=== PATIENT | female | born 1960 | race Caucasian/White ===

== ENCOUNTER 2019-04-06 10:32 | Emergency (ER) | payer OTHER ==
[~2019-04-06] VITALS: Ht 162.6 cm; Wt 73.5 kg
[2019-04-06] MEDS ORDERED: LAMICTAL200 MG PO (10:49)
[2019-04-06] MEDS ORDERED: PROZAC20 MG PO (10:50)
[2019-04-06] MEDS ORDERED: BUPROPION HCL150 M1 PO (10:50)
[2019-04-06 11:17] LABS: ABSOLUTE NEUTROPHILS 8.5 thou/uL (1.4-8.2); BASOPHILS 1.5 % (0.0-2.0); EOSINOPHILS 4.8 % (0.0-3.0); HEMATOCRIT 41.5 % (37.0-47.0); LYMPHOCYTES 18.9 % (24.0-44.0); MCH 31.8 pg (26.0-34.0); MCHC 33.8 g/dL (28.0-37.0); MCV 93.9 fL (80.0-100.0); MONOCYTES 6.1 % (1.0-8.0); PLATELET COUNT 736 thou/uL (150-400); POLYS 68.7 % (36.0-66.0); RBC 4.42 mil/uL (4.20-5.00); RDW 14.3 % (10.5-14.5); WBC 12.3 thou/uL (4.0-11.0)
[2019-04-06 11:23] LABS: ANION GAP 10 mmol/L (7-16); BUN 10 mg/dL (7-18); CHLORIDE 104 mmol/L (98-107); CO2 29 mmol/L (21-32); CREATININE 0.8 mg/dL (0.6-1.0); GLUCOSE 109 mg/dL (74-106); POTASSIUM 3.9 mmol/L (3.5-5.1); SODIUM 143 mmol/L (136-145)
[2019-04-06 11:34] LABS: ALBUMIN 4.1 g/dL (3.4-5.0); SGOT 16 U/L (15-37); SGPT 22 U/L (30-65); TOTAL BILIRUBIN 0.5 mg/dL (<0.1-1.0); TOTAL PROTEIN 7.7 g/dL (6.4-8.2); TROPONIN-I <0.06 ng/mL (<0.06)
[2019-04-06 12:37] LABS: AMP/METHAMP Negative (Negative); BARBITURATES Negative (Negative); BENZODIAZEPINES Negative (Negative); COCAINE Negative (Negative); METHADONE Negative (Negative); OPIATES Negative (Negative); PCP Negative (Negative)
[2019-04-06] MEDS ORDERED: PRINIVIL20 MG PO (12:44)
[2019-04-06 12:50] VITALS: BP 166/68
--- NOTE | 2019-04-07 09:05 | EKG ---
[place] [address] [employer] [facility] [email or web address] [address] ELECTROCARDIOGRAM REPORT Name: WALLACE TATUM Room #: [facility]P [facility] [id number] ������������������ Admission: 04/06/19 ������������������ Attend Phys: Discharge: 04/06/19 ������������������ Date of : 56 Report #: [id number] ����������������������������������������������������������������� [id number] THIS REPORT FOR: //name// [facility] ED Test Date: 2019-04-06 Test Time: 10:42:28 Pat Name: WALLACE TATUM Department: Room: Gender: F Prop Sawyer: UZMA : 1960 Requested By: Harry Thapa Order Number: [id number] MD: Saran Hernandez Measurements Intervals [place] Rate: 84 P: 17 AR: 147 QRS: 30 QRSD: 88 T: 55 QT: 358 QTc: 424 Interpretive Statements Sinus rhythm Normal tracing No previous ECG available for comparison Electronically Signed On 04-07-2019 9:05:37 CDT by Saran Hernandez [email or web address] ��������������������������������������������� <ELECTRONICALLY SIGNED> ���������������������������������������� By: Saran Hernandez MD, [facility] ��������������������������������������������� 04/07/19 0905 1042 1042 Saran Hernandez MD, FACC /EPI
== END 2019-04-06 12:50 | disposition home or self-care (01) ==
LOC: ER 10:32
PROVIDERS: Emergency Medicine
DX: R00.2 Palpitations (principal); I10 Essential (primary) hypertension; R53.1 Weakness; F17.210 Nicotine dependence, cigarettes, uncomplicated; Z88.5 Allergy status to narcotic agent

== ENCOUNTER → 2020-09-28 | Outpatient (CLI) | payer OTHER ==
[~2020-09-28] MED LIST: BUPROPION HCL150 M1 PO; LAMICTAL200 MG PO; PRINIVIL20 MG PO; PROZAC20 MG PO
== END ==
LOC: BC 12:43
PROVIDERS: ATTEND Nurse Practitioner
DX: Z12.31 Encounter for screening mammogram for malignant neoplasm of breast (principal); M81.0 Age-related osteoporosis without current pathological fracture; M85.88 Other specified disorders of bone density and structure, other site